=== PATIENT | male | born 1935 | race Caucasian/White ===

== ENCOUNTER 2018-05-30 13:19 | Emergency (ER) | payer MEDICARE ==
[~2018-05-30] VITALS: Ht 177.8 cm; Wt 73.6 kg
[2018-05-30 16:11] LABS: HEMATOCRIT 29.7 % (39.0-50.0); HEMOGLOBIN 9.9 g/dl (14.0-18.0); MEAN CELL VOLUME 106.5 fL CALC (80.0-100.0); MEAN CORPUSCULAR HGB 35.5 pG CALC (26.0-32.0); MEAN CORPUSCULAR HGB CONC 33.3 g/L CALC (32.0-36.0); NEUT# 12.91 thou/uL (1.82-7.42); RED BLOOD COUNT 2.79 mill/uL (4.70-6.10); RED CELL DISTRI WIDTH 20.5 % (11.5-15.5)
[2018-05-30 16:25] LABS: ANION GAP 12 (6-22 (CALC)); BUN 24 mg/dL (8-23); BUN/CREATININE RATIO 28 (12-20 (CALC)); CARBON DIOXIDE 25 mmol/l (22-30); CHLORIDE 106 mmol/l (95-108); CREATININE 0.9 mg/dL (0.7-1.3); GFR > 60 ML/MIN (>=60 (CALC)); GFR FOR AFR.AMER. > 60 ML/MIN (>=60 (CALC)); POTASSIUM 3.8 mmol/l (3.5-5.1); SODIUM 139 mmol/l (137-146)
[2018-05-30 18:04] VITALS: BP 114/66
[2018-05-30] MEDS ORDERED: CEPHALEXIN500 M1 PO (18:07)
== END 2018-05-30 18:45 | disposition left against medical advice (07) ==
LOC: ED 13:19
PROVIDERS: Family Medicine
PROC: 0HQ1XZZ Repair Face Skin, External Approach (ICD-10-PCS; principal; 2018-05-30)
DX: S01.81XA Laceration without foreign body of other part of head, initial encounter (principal); J98.2 Interstitial emphysema; I10 Essential (primary) hypertension; W06.XXXA Fall from bed, initial encounter; Y92.003 Bedroom of unspecified non-institutional (private) residence as the place of occurrence of the external cause; S41.112D Laceration without foreign body of left upper arm, subsequent encounter; S41.111D Laceration without foreign body of right upper arm, subsequent encounter; W19.XXXD Unspecified fall, subsequent encounter; Z91.19 Patient's noncompliance with other medical treatment and regimen; Z85.118 Personal history of other malignant neoplasm of bronchus and lung; Z85.038 Personal history of other malignant neoplasm of large intestine
CPT/HCPCS: Q9967

== ENCOUNTER 2018-08-28 15:39 | Emergency (ER) | payer MEDICARE ==
[~2018-08-28] VITALS: Ht 177.8 cm; Wt 65.0 kg
[~2018-08-28 15:39] MED LIST: CEPHALEXIN500 M1 PO
[2018-08-28] MEDS ORDERED: CEPHALEXIN500 MG PO (16:19)
[2018-08-28] MEDS ORDERED: MUPIROCIN21 TOP (16:19)
[2018-08-28 16:58] VITALS: BP 114/60
== END 2018-08-28 17:14 | disposition home or self-care (01) ==
LOC: ED 15:39
PROC: 0HQ1XZZ Repair Face Skin, External Approach (ICD-10-PCS; principal; 2018-08-28)
DX: S01.81XA Laceration without foreign body of other part of head, initial encounter (principal); S41.012A Laceration without foreign body of left shoulder, initial encounter; S41.112A Laceration without foreign body of left upper arm, initial encounter; S51.812A Laceration without foreign body of left forearm, initial encounter; S61.212A Laceration without foreign body of right middle finger without damage to nail, initial encounter; S61.412A Laceration without foreign body of left hand, initial encounter; W18.11XA Fall from or off toilet without subsequent striking against object, initial encounter; I10 Essential (primary) hypertension; Y93.89 Activity, other specified; Y92.002 Bathroom of unspecified non-institutional (private) residence as the place of occurrence of the external cause; Z85.118 Personal history of other malignant neoplasm of bronchus and lung; Z85.038 Personal history of other malignant neoplasm of large intestine